=== PATIENT | male | born 2000 | race Two or more races ===

== ENCOUNTER 2020-01-15 19:55 | Emergency (ER) | payer SELFPAY ==
[~2020-01-15] VITALS: Ht 180.3 cm; Wt 65.8 kg
--- NOTE | 2020-01-15 20:06 | NUR ---
ELSIE FROM HOME TO ER BED 6. AAOX4. NOT IN RESP DISTRESS, BREATHING EVEN AND UNLABORED, SATTING AT 100% ON RA. TRANSFERRED FROM [facility] TO BED. BROUGHT IN FOR POSSIBLE OVERDOSE OF UNKNOWN SUBSTANCE. PER EMS REPORT, PT WAS FOUND BY THE PARENTS UNCONSCIOUS AND CYONOTIC. PT DENIED ANY DRUG USE. HE STATES THAT HE ONLY TOOK IBUPROPHEN. PT DENIES ANY SUICIDAL NOR HOMICIDAL IDEATION. PT IN MONITOR. MD WAS AT THE BEDSIDE FOR EVAL. ORDERS RECEIVED NOTED AND CARRIED OUT.
--- NOTE | 2020-01-15 20:11 | NUR ---
Pt unable to provide urine sample at this time. Pt given a pitcher of water.
--- NOTE | 2020-01-15 20:16 | NUR ---
[facility] at bedside for eval.
[2020-01-15] MEDS ORDERED: ACETAMINOPHEN 325 MG TABLET PO ONE (20:30)
--- NOTE | 2020-01-15 20:30 | NUR ---
pt mother, Darlyn, on the phone checking up on his son. Pt is approved to give updates.
[2020-01-15] MEDS ORDERED: ACETAMINOPHEN 325 MG TABLET ONE (20:31)
--- NOTE | 2020-01-15 20:36 | NUR ---
lab at bedside for eval
[2020-01-15 21:04] LABS: BASOPHILS # (AUTO) 0.1 /CMM (0.0-0.2); BASOPHILS % (AUTO) 0.8 % (0.0-2.0); HEMATOCRIT 46 % (39-51); HEMOGLOBIN 15.1 g/dL (13.5-17.5); LYMPHOCYTES # (AUTO) 0.7 /CMM (0.8-4.8); LYMPHOCYTES % (AUTO) 6.3 % (20.0-44.0); MEAN CORPUSCULAR HGB CONC 33 g/dl (31.0-36.0); MEAN CORPUSCULAR VOLUME 88 fL (80-96); MONOCYTES # (AUTO) 0.9 /CMM (0.1-1.30); MONOCYTES % (AUTO) 7.7 % (2.0-12.0); NEUTROPHILS # (AUTO) 9.7 /CMM (1.8-8.9); NEUTROPHILS % (AUTO) 84.2 % (43.0-81.0); PLATELET COUNT (AUTO) 267 /CMM (150-450); RED BLOOD CELL COUNT(AUTO) 5.19 MIL/uL (4.5-6.0); WHITE BLOOD COUNT (AUTO) 11.5 K/uL (4.3-11.0)
[2020-01-15 21:32] LABS: BILIRUBIN,URINE NEGATIVE (NEGATIVE); BLOOD, URINE NEGATIVE Ery/uL (NEGATIVE); COLOR,URINE YELLOW (YELLOW); LEUKOCYTE ESTERASE ,URINE NEGATIVE (NEGATIVE); NITRITE, URINE NEGATIVE (NEGATIVE); PROTEIN,URINE TRACE mg/dl (NEGATIVE); UGLUCOSE NEGATIVE (NEGATIVE); UROBILINOGEN,URINE 0.2 EU/dL (0.2)
[2020-01-15 21:37] LABS: BACTERIA,URINE None seen /HPF (None Seen); RBC,URINE 0-2 /HPF (0-2); SQUAMOUS EPITHELIAL CELL,UR 0-2 /HPF (None Seen); WBC,URINE 0-2 /HPF (0-3)
[2020-01-15 21:38] LABS: URINE AMORPHOUS PHOSPHATES Moderate /HPF (None Seen)
--- NOTE | 2020-01-15 22:13 | NUR ---
COVID SWAB DONE AND SENT TO LAB
[2020-01-15 22:36] LABS: ALANINE AMINOTRANSFERASE 30 U/L (12-78); ALBUMIN 4.2 g/dL (3.4-5.0); ALKALINE PHOSPHATASE 95 U/L (46-116); ASPARTATE AMINOTRANSFERASE 20 U/L (15-37); BILIRUBIN,DIRECT 0.3 mg/dL (0.0-0.2); CALCIUM, SERUM 8.5 mg/dL (8.5-10.1); CARBON DIOXIDE 33 mmol/L (21-32); CHLORIDE 102 mmol/L (98-107); CREATININE 1.1 mg/dL (0.6-1.3); GLUCOSE 198 mg/dL (74-106); POTASSIUM 4.1 mmol/L (3.5-5.1); SODIUM SERUM 140 mmol/L (136-145); TOTAL PROTEIN, SERUM 6.9 g/dL (6.4-8.2); UREA NITROGEN, BLOOD 10 mg/dL (7-18)
[2020-01-15 22:38] LABS: ACETAMINOPHEN < 10 ug/ml (10-30)
[2020-01-15 22:46] LABS: ALCOHOL, BLOOD < 3 mg/dL (0-0)
--- NOTE | 2020-01-15 23:37 | NUR ---
Patient discharged to home in stable condition. Written and verbal after care instructions given. Patient verbalizes understanding of instruction. Pt ambulatory with a steady gait. Awaiting for mother to pick pt up
--- NOTE | 2020-01-15 23:39 | NUR ---
pt will be picked up by his mother in 15-20 min
--- NOTE | 2020-01-16 | NUR ---
pt picked up by his mother. ambulatory on steady gait
[2020-01-16 00:01] VITALS: BP 138/84
== END 2020-01-16 00:02 | disposition home or self-care (01) ==
LOC: ER 20:00
DX: T40.2X1A Poisoning by other opioids, accidental (unintentional), initial encounter (principal); S40.022A Contusion of left upper arm, initial encounter; F19.10 Other psychoactive substance abuse, uncomplicated; R00.0 Tachycardia, unspecified; X58.XXXA Exposure to other specified factors, initial encounter; Y93.89 Activity, other specified; Y92.89 Other specified places as the place of occurrence of the external cause; Y99.8 Other external cause status
CPT/HCPCS: 36415; 80048-TC; 80076-TC; 81001; 85025-TC; G0480; U0003